=== PATIENT | female | born 1955 | race Two or more races ===

== ENCOUNTER 2023-08-13 20:14 | Inpatient (IN) | payer OTHER ==
[2023-08-13 21:19] LABS: BASO % 0.3 % (0-2.0); EOS % 0.4 % (0-4.5); HEMATOCRIT 36.1 % (32.4-45.2); LYMPH % 31.9 % (8-40); MCH 29.2 pg (25.7-33.7); MCHC 33.2 g/dl (32.0-36.0); MEAN CELL VOLUME 88.1 fl (80-96); MEAN PLT VOLUME 7.8 fl (7.5-11.1); MONO % 8.7 % (3.8-10.2); NEUT % 58.7 % (42.8-82.8); PLATELET COUNT 209 10^3/uL (134-434); RDW 15.3 % (11.6-15.6)
[2023-08-13 21:26] LABS: INR 1.2 (0.83-1.09); PROTHROMBIN TIME (PATIENT) 13.9 SEC (9.7-13.0)
[2023-08-13 21:28] LABS: ACTIVATED PTT 28.8 SECONDS (25.2-36.5)
[2023-08-13 21:34] LABS: POTASSIUM 4.3 mmol/L (3.5-5.1)
[2023-08-13 21:35] LABS: CALCIUM 8.5 mg/dL (8.5-10.1)
[2023-08-13 21:36] LABS: ALBUMIN 3.3 g/dl (3.4-5.0)
[2023-08-13 21:37] LABS: BLOOD UREA NITROGEN 16.1 mg/dL (7-18)
[2023-08-13 21:39] LABS: CREATININE 0.9 mg/dL (0.55-1.3)
[2023-08-13 21:41] LABS: TOT PROT 6.8 g/dl (6.4-8.2)
[2023-08-13 21:42] LABS: BILIRUBIN,TOTAL 0.2 mg/dL (0.2-1)
[2023-08-13] MEDS ORDERED: ACETAMINOPHEN 1000 MG/100 ML BAG IVPB ONE (23:01)
[2023-08-13] MEDS ORDERED: FOLIC ACID INJECTION - 1 MG, THIAMINE HCL 100 MG, MULTIVIT INJECTION ADULT 10 ML in SOD... IVPB ONE (23:01)
[2023-08-13] MEDS ORDERED: chlordiazePOXIDE HCL 25 MG CAPSULE PO ONE (23:01)
[2023-08-13] MEDS ORDERED: chlordiazePOXIDE HCL 25 MG CAPSULE ONE (23:13)
[2023-08-13] MEDS ORDERED: ACETAMINOPHEN INJECTION 100 ML IVPB ONE (23:13)
[2023-08-13] MEDS ORDERED: ONDANSETRON 4 MG/2 ML VIAL IVPUSH ONE (23:25)
[2023-08-13] MEDS ORDERED: LORazepam 2 MG/ML SDV VIAL IM ONE (23:25)
[2023-08-13] MEDS ORDERED: ONDANSETRON 4 MG/2 ML VIAL ONE (23:37)
[2023-08-14] MEDS ORDERED: LORazepam 2 MG/ML SDV VIAL IVPUSH PRN (00:20)
[2023-08-14] MEDS ORDERED: FOLIC ACID INJECTION - 1 MG, THIAMINE HCL 100 MG, MULTIVIT INJECTION ADULT 10 ML in SOD... IVPB ONE (00:23)
[2023-08-14 01:43] LABS: EPI CELLS 3 /uL (0-25.1); HYALINE CASTS 1 /uL (0-3.1); PH,URINE 5.5 (5.0-8.0); URINE APPEARANCE CLEAR; URINE BILIRUBIN NEGATIVE (NEGATIVE); URINE COLOR YELLOW; URINE GLUCOSE (UA) 1+ (NEGATIVE); URINE KETONE NEGATIVE (NEGATIVE); URINE LEUK ESTERASE NEGATIVE (NEGATIVE); URINE NITRITE POSITIVE (NEGATIVE); URINE PROTEIN TRACE (NEGATIVE); URINE RBC 17 /uL (0-23.9); URINE UROBILINOGEN 0.2 mg/dL (0.2-1.0); URINE WBC 2 /uL (0-25.8)
[2023-08-14] MEDS ORDERED: chlordiazePOXIDE HCL 25 MG CAPSULE ONE (06:14)
[2023-08-14] MEDS: chlordiazePOXIDE HCL 25 MG CAPSULE PO SCH ×3 (06:21→18:36)
[2023-08-14 08:21] LABS: HEMATOCRIT 34.1 % (32.4-45.2); MCH 29.2 pg (25.7-33.7); MCHC 32.4 g/dl (32.0-36.0); PLATELET COUNT 210 10^3/uL (134-434); RBC 3.78 M/mm3 (3.60-5.2); RDW 15.1 % (11.6-15.6); WHITE BLOOD COUNT 7.3 K/mm3 (4.0-10.0)
[2023-08-14 08:23] LABS: CALCIUM 8.2 mg/dL (8.5-10.1)
[2023-08-14 08:27] LABS: CREATININE 0.7 mg/dL (0.55-1.3)
[2023-08-14 09:37] LABS: URINE BACTERIA 469 /uL (0-1359)
[2023-08-14] MEDS ORDERED: ASPIRIN 81 MG CHEWABLE TABLETS PO SCH (10:00)
[2023-08-14] MEDS ORDERED: CEFTRIAXONE 1 GM/50 ML BAG ONE (10:10)
[2023-08-14] MEDS: CEFTRIAXONE 1 GM in DEXTROSE 5%-WATER - 50 ML IVPB SCH (10:23)
[2023-08-14] MEDS: FOLIC ACID 1 MG TABLET (FP) PO SCH (10:25)
[2023-08-14] MEDS: THIAMINE HCL 100 MG TABLET (FP) PO SCH (10:25)
[2023-08-14] MEDS ORDERED: ACETAMINOPHEN INJECTION 100 ML IVPB ONE (15:04)
[2023-08-14] MEDS ORDERED: ACETAMINOPHEN 1000 MG/100 ML BAG IVPB PRN (15:07)
[2023-08-14] MEDS ORDERED: FLU VACCINE (FLULAVAL) PF 60 MCG/0.5 ML SYRINGE 2023-2024 IM ONE (18:15)
[2023-08-14] MEDS ORDERED: PNEUMOC 20-VAL CONJ-DIP CRM/PF 0.5 ML SYRINGE IM ONE (18:15)
[2023-08-14] MEDS ORDERED: LORazepam 2 MG/ML SDV VIAL IVPUSH ONE (21:02)
[2023-08-14] MEDS ORDERED: ATORVASTATIN CA 20 MG TABLET (FP) PO SCH (22:00)
[2023-08-15] MEDS: chlordiazePOXIDE HCL 25 MG CAPSULE PO SCH ×4 (06:45→18:21)
[2023-08-15] MEDS ORDERED: ASPIRIN COATED 81 MG TABLET.EC PO SCH (10:00)
[2023-08-15] MEDS: THIAMINE HCL 100 MG TABLET (FP) PO SCH ×2 (12:16)
[2023-08-15] MEDS: FOLIC ACID 1 MG TABLET (FP) PO SCH (12:16)
[2023-08-15] MEDS: CEFTRIAXONE 1 GM in DEXTROSE 5%-WATER - 50 ML IVPB SCH (12:16)
[2023-08-15] MEDS: LISINOPRIL 10 MG TABLET PO SCH (12:16)
[2023-08-15] MEDS ORDERED: HEPARIN NA (PORCINE) 5,000 UNITS/ML 1ML VIAL IVPUSH PRN ×2 (12:43)
[2023-08-15] MEDS ORDERED: HEPARIN INFUSION - 25,000 UNITS/500 ML INFUS.BAG IVPB SCH (12:45)
[2023-08-15] MEDS: MUPIROCIN 2% TOPICAL OINTMENT FOR DECOLONIZATION NS SCH ×2 (12:53→21:07)
[2023-08-15] MEDS: FAMOTIDINE 20 MG/50 ML IVPB 20 MG/50 ML MG IVPB SCH (21:06)
[2023-08-15] MEDS ORDERED: CHLORHEXIDINE GLUCONATE 4% CLEANSER FOR DECOLONIZATION TP SCH (22:00)
[2023-08-15] MEDS ORDERED: ATORVASTATIN CA 40 MG TABLET (FP) PO SCH (22:00)
[2023-08-16] MEDS: chlordiazePOXIDE HCL 25 MG CAPSULE PO SCH ×2 (00:33→06:39)
[2023-08-16] MEDS ORDERED: LABETALOL HCL 5 MG/1 ML (100MG/20 ML VIAL) IVPUSH ONE (08:07)
[2023-08-16] MEDS ORDERED: LABETALOL HCL 20 MG/4 ML VIAL ONE (08:08)
[2023-08-16 08:15] LABS: BASO % 0.2 % (0-2.0); EOS % 1.6 % (0-4.5); HEMATOCRIT 32.7 % (32.4-45.2); LYMPH % 45.7 % (8-40); MCH 29.7 pg (25.7-33.7); MCHC 33.6 g/dl (32.0-36.0); MEAN CELL VOLUME 88.4 fl (80-96); MEAN PLT VOLUME 7.9 fl (7.5-11.1); MONO % 6.6 % (3.8-10.2); NEUT % 45.9 % (42.8-82.8); PLATELET COUNT 174 10^3/uL (134-434); RDW 15.1 % (11.6-15.6); WHITE BLOOD COUNT 4.4 K/mm3 (4.0-10.0)
[2023-08-16 08:36] LABS: POTASSIUM 3.6 mmol/L (3.5-5.1)
[2023-08-16] MEDS ORDERED: METOPROLOL TARTRATE 5 MG/5 ML VIAL IVPUSH ONE (08:45)
[2023-08-16] MEDS ORDERED: METOPROLOL TARTRATE 5 MG/5 ML VIAL IVPUSH PRN ×3 (08:56→18:24)
[2023-08-16] MEDS: LISINOPRIL 10 MG TABLET PO SCH (08:59)
[2023-08-16 09:05] LABS: ALBUMIN 2.9 g/dl (3.4-5.0); BILIRUBIN,TOTAL 0.4 mg/dL (0.2-1); BLOOD UREA NITROGEN 9.7 mg/dL (7-18); CALCIUM 8.4 mg/dL (8.5-10.1); CREATININE 0.7 mg/dL (0.55-1.3); MAGNESIUM 1.9 mg/dL (1.8-2.4); PHOSPHOROUS 3.4 mg/dL (2.5-4.9); TOT PROT 6.4 g/dl (6.4-8.2)
[2023-08-16] MEDS ORDERED: hydrALAZINE HCL 20 MG/ML VIAL IVPUSH ONE (09:15)
[2023-08-16] MEDS ORDERED: LISINOPRIL 20 MG TABLET PO SCH (10:00)
[2023-08-16] MEDS ORDERED: ASPIRIN 81 MG CHEWABLE TABLETS PO SCH (10:00)
[2023-08-16] MEDS: MUPIROCIN 2% TOPICAL OINTMENT FOR DECOLONIZATION NS SCH (10:37)
[2023-08-16] MEDS: FOLIC ACID 1 MG TABLET (FP) PO SCH (10:37)
[2023-08-16] MEDS: THIAMINE HCL 100 MG TABLET (FP) PO SCH (10:37)
[2023-08-16] MEDS: FAMOTIDINE 20 MG/50 ML IVPB 20 MG/50 ML MG IVPB SCH ×2 (10:37→22:21)
[2023-08-16] MEDS ORDERED: LISINOPRIL 20 MG TABLET PO ONE (11:00)
[2023-08-16] MEDS ORDERED: INSULIN (NOVOLOG) ASPART 100 UNITS/ML 10ML VIAL ONE ×2 (11:32→11:49)
[2023-08-16] MEDS: INSULIN SLIDING SCALE (NOVOLOG) 1 VIAL SQ SCH ×3 (11:35→22:20)
[2023-08-16] MEDS ORDERED: chlordiazePOXIDE 5 MG CAPSULE PO PRN (11:56)
[2023-08-16] MEDS ORDERED: chlordiazePOXIDE HCL 25 MG CAPSULE PO SCH (12:00)
[2023-08-16] MEDS ORDERED: APIXABAN 5 MG TABLET PO SCH (12:15)
[2023-08-16] MEDS ORDERED: chlordiazePOXIDE HCL 10 MG CAPSULE PO PRN ×2 (12:20→18:24)
[2023-08-16 15:22] VITALS: BMI 38.6
[2023-08-16] MEDS ORDERED: metoPROLOL SUCCINATE 25 MG TAB.SR.24H (FP) PO SCH (22:00)
[2023-08-16] MEDS ORDERED: CHLORHEXIDINE GLUCONATE 4% CLEANSER FOR DECOLONIZATION TP SCH (22:00)
[2023-08-16] MEDS: APIXABAN 5 MG TABLET PO SCH (22:13)
[2023-08-16] MEDS: metoPROLOL SUCCINATE 25 MG TAB.SR.24H (FP) PO SCH (22:13)
[2023-08-16] MEDS: ATORVASTATIN CA 40 MG TABLET (FP) PO SCH (22:13)
[2023-08-17] MEDS: INSULIN SLIDING SCALE (NOVOLOG) 1 VIAL SQ SCH ×4 (06:48→22:21)
[2023-08-17] MEDS: metoPROLOL SUCCINATE 25 MG TAB.SR.24H (FP) PO SCH ×2 (09:59→22:05)
[2023-08-17] MEDS: FAMOTIDINE 20 MG/50 ML IVPB 20 MG/50 ML MG IVPB SCH ×2 (09:59→22:05)
[2023-08-17] MEDS: APIXABAN 5 MG TABLET PO SCH ×2 (09:59→22:05)
[2023-08-17] MEDS ORDERED: ASPIRIN 81 MG CHEWABLE TABLETS PO SCH (10:00)
[2023-08-17] MEDS ORDERED: LISINOPRIL 20 MG TABLET PO SCH ×2 (10:00)
[2023-08-17] MEDS: FOLIC ACID 1 MG TABLET (FP) PO SCH (10:05)
[2023-08-17] MEDS: THIAMINE HCL 100 MG TABLET (FP) PO SCH (10:05)
[2023-08-17] MEDS: LISINOPRIL 20 MG TABLET PO SCH (10:05)
[2023-08-17] MEDS ORDERED: ATORVASTATIN CA 20 MG TABLET (FP) ONE (21:59)
[2023-08-17] MEDS: ATORVASTATIN CA 40 MG TABLET (FP) PO SCH (22:05)
[2023-08-18] MEDS: INSULIN SLIDING SCALE (NOVOLOG) 1 VIAL SQ SCH ×4 (06:23→22:28)
[2023-08-18] MEDS: THIAMINE HCL 100 MG TABLET (FP) PO SCH (10:18)
[2023-08-18] MEDS: metoPROLOL SUCCINATE 25 MG TAB.SR.24H (FP) PO SCH ×2 (10:18→22:27)
[2023-08-18] MEDS: APIXABAN 5 MG TABLET PO SCH ×2 (10:19→22:28)
[2023-08-18] MEDS: FOLIC ACID 1 MG TABLET (FP) PO SCH (10:19)
[2023-08-18] MEDS: FAMOTIDINE 20 MG/50 ML IVPB 20 MG/50 ML MG IVPB SCH ×2 (10:19→22:27)
[2023-08-18] MEDS: LISINOPRIL 20 MG TABLET PO SCH (10:19)
[2023-08-18] MEDS ORDERED: INSULIN (NOVOLOG) ASPART 100 UNITS/ML 10ML VIAL ONE (11:55)
[2023-08-18] MEDS: ATORVASTATIN CA 40 MG TABLET (FP) PO SCH (22:28)
[2023-08-19] MEDS: INSULIN SLIDING SCALE (NOVOLOG) 1 VIAL SQ SCH ×4 (06:36→22:04)
[2023-08-19] MEDS: APIXABAN 5 MG TABLET PO SCH ×2 (09:14→21:45)
[2023-08-19] MEDS: THIAMINE HCL 100 MG TABLET (FP) PO SCH (09:14)
[2023-08-19] MEDS: FOLIC ACID 1 MG TABLET (FP) PO SCH (09:14)
[2023-08-19] MEDS: FAMOTIDINE 20 MG/50 ML IVPB 20 MG/50 ML MG IVPB SCH ×2 (09:14→21:45)
[2023-08-19] MEDS: LISINOPRIL 20 MG TABLET PO SCH (09:14)
[2023-08-19] MEDS: metoPROLOL SUCCINATE 25 MG TAB.SR.24H (FP) PO SCH ×2 (10:30→21:45)
[2023-08-19] MEDS: ATORVASTATIN CA 40 MG TABLET (FP) PO SCH (21:45)
[2023-08-20 00:30] VITALS: RESP 18
[2023-08-20] MEDS: INSULIN SLIDING SCALE (NOVOLOG) 1 VIAL SQ SCH ×2 (06:24→12:18)
[2023-08-20 10:07] VITALS: TEMP 97.8
[2023-08-20] MEDS: FAMOTIDINE 20 MG/50 ML IVPB 20 MG/50 ML MG IVPB SCH (10:10)
[2023-08-20] MEDS: APIXABAN 5 MG TABLET PO SCH (10:10)
[2023-08-20] MEDS: THIAMINE HCL 100 MG TABLET (FP) PO SCH (10:10)
[2023-08-20] MEDS: LISINOPRIL 20 MG TABLET PO SCH (10:10)
[2023-08-20] MEDS: FOLIC ACID 1 MG TABLET (FP) PO SCH (10:11)
[2023-08-20] MEDS: metoPROLOL SUCCINATE 25 MG TAB.SR.24H (FP) PO SCH (10:11)
[2023-08-20 12:58] VITALS: BP 168/76; PULSE 58
[2023-08-20] MEDS ORDERED: LISINOPRIL 20 MG TABLET PO ONE (13:00)
== END 2023-08-20 13:33 | DRG 65 ==
LOC: JER 20:14 → JERBED 23:10 → J4W 08-14 15:34 → JICU 08-15 10:49 → J4W 08-16 17:06
PROVIDERS: ADMIT Internal Medicine; ATTEND Family Medicine
PROC: HZ2ZZZZ Detoxification Services for Substance Abuse Treatment (ICD-10-PCS; principal; 2023-08-13)
DX: I63.89 Other cerebral infarction (principal); I69.952 Hemiplegia and hemiparesis following unspecified cerebrovascular disease affecting left dominant side; N39.0 Urinary tract infection, site not specified; I10 Essential (primary) hypertension; E78.5 Hyperlipidemia, unspecified; E11.65 Type 2 diabetes mellitus with hyperglycemia; F10.10 Alcohol abuse, uncomplicated; R47.81 Slurred speech; R29.705 NIHSS score 5; I48.91 Unspecified atrial fibrillation; I48.0 Paroxysmal atrial fibrillation; R51.9 Headache, unspecified; E66.9 Obesity, unspecified; Z68.38 Body mass index [BMI] 38.0-38.9, adult
CPT/HCPCS: 0241U-QW; 36415; 70450-TC; 70496-TC; 70498-TC; 70552-TC; 71045-TC-FY; 80048; 80053; 80061; 80307; 81003; 82550; 82553; 82962; 83036; 83735; 84100; 84484; 85025; 85027; 85610; 85730; 86850; 86900; 86901; 87040; 87086; 93005; 93010; 93306-TC; 93880-TC; 97116-GP; 97163-GP; 99285-25; J1644